=== PATIENT | female | born 1965 | race Native Hawaiian/Other Pacific Islander ===

== ENCOUNTER 2022-01-25 15:46 | Inpatient (IN) | payer BC ==
[~2022-01-25] VITALS: Ht 177.8 cm; Wt 69.4 kg
[2022-01-25 17:20] VITALS: BP 100/64; TEMP 98.1; Ht 177.8 cm; Wt 69.4 kg
[2022-01-25 20:00] VITALS: BP 101/62; TEMP 98.1
[2022-01-26 08:00] VITALS: BP 110/57; TEMP 98.7
[2022-01-26 20:14] VITALS: BP 104/56; TEMP 98.4
[2022-01-27] MEDS ORDERED: ENOX80IN SC (07:42)
[2022-01-27] MEDS ORDERED: GABA300C2 PO (07:44)
[2022-01-27] MEDS ORDERED: FLUD0.1T PO (07:44)
[2022-01-27] MEDS ORDERED: LEVE500T5 PO (07:45)
[2022-01-27] MEDS ORDERED: SIMV40TA57 PO (07:46)
[2022-01-27 08:00] VITALS: BP 117/70; TEMP 98.1
[2022-01-27 20:28] VITALS: BP 122/82; TEMP 98.4
[2022-01-28 08:00] VITALS: BP 107/72; TEMP 98.8
[2022-01-28 20:27] VITALS: BP 114/72; TEMP 99
[2022-01-29 06:15] LABS: PLATELET COUNT 267 K/uL (152-353)
[2022-01-29 06:53] LABS: POTASSIUM 3.3 mmol/L (3.6-5.2)
[2022-01-29 20:00] VITALS: BP 112/74; TEMP 98.9
[2022-01-30 20:00] VITALS: BP 108/66; TEMP 97.7
[2022-01-31 08:00] VITALS: BP 120/73; TEMP 98.6
[2022-01-31 20:39] VITALS: BP 118/76; TEMP 98.2
[2022-02-01 20:27] VITALS: BP 122/75; TEMP 98.3
[2022-02-03 08:00] VITALS: BP 130/77; TEMP 98.4
[2022-02-04 20:00] VITALS: BP 112/71; TEMP 99
[2022-02-05 08:00] VITALS: BP 108/68; TEMP 98.1
[2022-02-05 20:40] VITALS: BP 119/66; TEMP 98.3
[2022-02-06 08:00] VITALS: BP 120/76; TEMP 98.3
[2022-02-06 20:48] VITALS: BP 104/68; TEMP 98.4
[2022-02-07 20:00] VITALS: BP 113/71; TEMP 98.8
[2022-02-08 20:00] VITALS: BP 122/66; TEMP 98.7
[2022-02-09 20:05] VITALS: BP 118/69; TEMP 98.1
[2022-02-10 08:00] VITALS: BP 114/73; TEMP 98.3
[2022-02-10 20:46] VITALS: BP 115/62; TEMP 98.3
[2022-02-11 09:17] VITALS: BP 123/61; TEMP 98.5
[2022-02-11 20:40] VITALS: BP 120/73; TEMP 98.7
[2022-02-12 08:00] VITALS: BP 112/73; TEMP 98.6
[2022-02-12 20:00] VITALS: BP 120/76; TEMP 97.8
[2022-02-13 20:00] VITALS: BP 125/80; TEMP 98.8
[2022-02-14 08:00] VITALS: BP 121/71; TEMP 98.2
[2022-02-14 20:21] VITALS: BP 128/71; TEMP 98.5
[2022-02-15 08:36] VITALS: BP 126/78; TEMP 98.3
[2022-02-15 20:19] VITALS: BP 111/76; TEMP 98.4
[2022-02-16 08:00] VITALS: BP 150/66; TEMP 98.1
[2022-02-16 20:00] VITALS: BP 116/74; TEMP 98.5
[2022-02-17 20:00] VITALS: BP 123/80; TEMP 98.6
[2022-02-18 08:00] VITALS: BP 127/86; TEMP 98
[2022-02-18 20:00] VITALS: BP 113/74; TEMP 98.1
[2022-02-19 09:15] VITALS: BP 134/78; TEMP 98.5
[2022-02-19 20:11] VITALS: BP 115/73; TEMP 98.2
[2022-02-20 08:00] VITALS: BP 134/76; TEMP 97.7
[2022-02-20 20:09] VITALS: BP 111/69; TEMP 98.4
[2022-02-21 20:00] VITALS: BP 118/69; TEMP 98.3
[2022-02-22 07:27] VITALS: BP 122/78; TEMP 98.4
[2022-02-22 20:00] VITALS: BP 129/80; TEMP 98.7
[2022-02-23 08:00] VITALS: BP 116/78; TEMP 98.1
[2022-02-23 20:10] VITALS: BP 114/80; TEMP 98.5
[2022-02-24 08:00] VITALS: BP 134/79; TEMP 98
[2022-02-24 20:04] VITALS: BP 132/84; TEMP 98.4
[2022-02-25 08:00] VITALS: BP 131/77; TEMP 98.5
[2022-02-25 19:53] VITALS: BP 128/90; TEMP 98.4
[2022-02-26 05:35] LABS: PLATELET COUNT 175 K/uL (152-353)
[2022-02-26 05:44] LABS: POTASSIUM 2.8 mmol/L (3.6-5.2)
[2022-02-26 08:00] VITALS: BP 126/80; TEMP 97.8
[2022-02-26 20:00] VITALS: BP 115/73; TEMP 98.5
[2022-02-27 08:00] VITALS: BP 130/80; TEMP 98
[2022-02-27 20:00] VITALS: BP 108/67; TEMP 98.8
[2022-02-28 08:00] VITALS: BP 121/79; TEMP 98.3
[2022-02-28 19:54] VITALS: BP 117/76; TEMP 98.5
[2022-03-01 08:00] VITALS: BP 131/80; TEMP 98.5
[2022-03-01 19:59] VITALS: BP 118/80; TEMP 98
[2022-03-02 08:39] VITALS: BP 134/86; TEMP 98.2
[2022-03-02 20:00] VITALS: BP 120/78; TEMP 98.3
[2022-03-03 08:00] VITALS: BP 109/70; TEMP 98.1
[2022-03-03 20:00] VITALS: BP 112/68; TEMP 98.7
[2022-03-04 20:00] VITALS: BP 125/70; TEMP 97.9
[2022-03-05 08:00] VITALS: BP 129/86; TEMP 98.3
[2022-03-05 20:00] VITALS: BP 122/84; TEMP 98.2
[2022-03-06 20:15] VITALS: BP 122/82; TEMP 98.4
[2022-03-07 08:00] VITALS: BP 121/75; TEMP 98.3
[2022-03-07 19:43] LABS: PLATELET COUNT 210 K/uL (152-353)
[2022-03-07 19:55] LABS: POTASSIUM 3.3 mmol/L (3.6-5.2)
[2022-03-07 20:00] VITALS: BP 122/79; TEMP 98.6
[2022-03-08 04:40] LABS: PLATELET COUNT 172 K/uL (152-353)
[2022-03-08 08:00] VITALS: BP 114/70; TEMP 98.3
[2022-03-08 08:26] LABS: POTASSIUM 3.5 mmol/L (3.6-5.2)
[2022-03-08 20:00] VITALS: BP 114/60; TEMP 98.4
[2022-03-09 08:00] VITALS: BP 133/82; TEMP 98.1
[2022-03-09 19:59] VITALS: BP 125/74; TEMP 98.3
[2022-03-10 08:00] VITALS: BP 114/78; TEMP 98.2
[2022-03-10 19:41] VITALS: BP 125/77; TEMP 98.4
[2022-03-11 08:26] VITALS: BP 121/77; TEMP 98.4
[2022-03-11 20:12] VITALS: BP 116/77; TEMP 98
[2022-03-12 20:00] VITALS: BP 111/70; TEMP 98.7
[2022-03-13 19:56] VITALS: BP 117/71; TEMP 98.4
[2022-03-14 19:52] VITALS: BP 119/89; TEMP 98.1
[2022-03-15 20:09] VITALS: BP 143/88; TEMP 98.3
[2022-03-16 08:00] VITALS: BP 125/69; TEMP 98.2
[2022-03-16 20:00] VITALS: BP 114/74; TEMP 98.1
[2022-03-17 08:00] VITALS: BP 107/73; TEMP 98.3
[2022-03-17 17:51] LABS: POTASSIUM 2.9 mmol/L (3.6-5.2)
[2022-03-17 20:00] VITALS: BP 107/70; TEMP 98.4
[2022-03-18 08:00] VITALS: BP 116/67; TEMP 98.3
[2022-03-18 20:00] VITALS: BP 128/85; TEMP 98.2
[2022-03-19 19:48] VITALS: BP 131/86; TEMP 98.4
[2022-03-20 08:40] VITALS: BP 114/82; TEMP 98.4
[2022-03-20 19:31] VITALS: BP 122/79; TEMP 97.9
[2022-03-21 08:00] VITALS: BP 125/77; TEMP 98.3
[2022-03-21 20:00] VITALS: BP 125/79; TEMP 98.2
[2022-03-22 08:00] VITALS: BP 127/83; TEMP 98.1
[2022-03-22 20:00] VITALS: BP 122/80; TEMP 98.5
[2022-03-23 19:48] VITALS: BP 158/65; TEMP 98.6
[2022-03-24 08:00] VITALS: BP 122/68; TEMP 98.3
[2022-03-24 20:09] VITALS: BP 131/75; TEMP 97.6
[2022-03-25] MEDS ORDERED: APIX1TAB PO (10:31)
[2022-03-25] MEDS ORDERED: DOCU100C10 PO (10:32)
[2022-03-25] MEDS ORDERED: MIRALAX 17GM PAK PO (10:32)
== END 2022-03-25 16:05 | disposition home or self-care (01) | DRG 949 ==
LOC: MED/SURG 15:46
PROVIDERS: Internal Medicine; ADMIT Internal Medicine; ATTEND Internal Medicine
DX: Z48.811 Encounter for surgical aftercare following surgery on the nervous system (principal); I60.7 Nontraumatic subarachnoid hemorrhage from unspecified intracranial artery; I69.054 Hemiplegia and hemiparesis following nontraumatic subarachnoid hemorrhage affecting left non-dominant side; I69.091 Dysphagia following nontraumatic subarachnoid hemorrhage; R13.11 Dysphagia, oral phase; R47.1 Dysarthria and anarthria; R48.8 Other symbolic dysfunctions; M62.81 Muscle weakness (generalized); R26.81 Unsteadiness on feet; R26.2 Difficulty in walking, not elsewhere classified; Z74.1 Need for assistance with personal care; I82.592 Chronic embolism and thrombosis of other specified deep vein of left lower extremity; G40.89 Other seizures; D64.9 Anemia, unspecified; I10 Essential (primary) hypertension; E78.5 Hyperlipidemia, unspecified; I69.0 Sequelae of nontraumatic subarachnoid hemorrhage
CPT/HCPCS: 36415; 80048; 80053; 81000; 85027; 87077; 87086; 87088; 87186; 87635; G0283-GP; J1650; U0003